=== PATIENT | female | born 1975 | race Two or more races ===

== ENCOUNTER 2022-07-02 12:49 | Emergency (ER) | payer SELFPAY ==
[~2022-07-02] VITALS: Ht 162.6 cm; Wt 63.0 kg
[2022-07-02 13:14] VITALS: BP 127/83
[2022-07-02] MEDS ORDERED: methylPREDNISolone SOD SUCC 125 MG/2 ML VL IM ONE (13:45)
[2022-07-02] MEDS ORDERED: EPINEPHrine HCL 1 MG/1 ML AMP SC ONE (13:45)
[2022-07-02] MEDS ORDERED: HYDR25CA PO (14:25)
[2022-07-02] MEDS ORDERED: METH4PAK PO (14:25)
== END 2022-07-02 14:29 | disposition home or self-care (01) ==
LOC: ER 12:49
DX: T78.40XA Allergy, unspecified, initial encounter (principal); Z88.0 Allergy status to penicillin; X58.XXXA Exposure to other specified factors, initial encounter
CPT/HCPCS: 96372; 99284; J0171; J2930